=== PATIENT | male | born 1945 | race Caucasian/White ===

== ENCOUNTER 2017-02-08 13:23 | Inpatient (IN) | payer OTHER ==
[~2017-02-08] VITALS: Ht 193 cm; Wt 91.2 kg
--- NOTE | ~2017-02-08 | HC ---
[facility] [place] [address] CONSULTATION Name: ASH FLEMING Room #: 424-P [facility] IN M.R.#: [id number] Admission: 02/08/17 Attend Phys: Jennifer Benjamin Discharge: 02/10/17 Date of : 45 Report #: [id number] THIS REPORT FOR: //name// CC: Jennifer Benjamin Rikki Stewart DATE OF SERVICE: 02/09/2017 CHIEF COMPLAINT: Left groin pain. HISTORY OF PRESENT ILLNESS: The patient is a very pleasant 71-year-old male with history of left groin and left scrotal tenderness over the past several weeks. He was seen in the emergency department yesterday where he was initially thought to have an incarcerated left inguinal hernia. Proper workup, including a CT scan of the pelvis demonstrated that this was actually epididymis and cystitis along with bladder diverticula. The patient has history of urethral stricture and has undergone straight catheterization multiple times daily over the past several years. He has been treated primarily at [facility] and has been followed by urology as an outpatient. He has also undergone right inguinal hernia repair with mesh and then had a re-repair of that same right side. He has apparently not had prior hernia repair on the left side. The patient also complains of nausea and pain with Valsalva, especially upon passing a bowel movement. He does take hydrocodone 10 mg q.4 hours chronically for arthritis. This does help with the groin pain. He denies any yu dysuria or hematuria. He has had prior heart catheterization x 3 and does have a diagnosis of atrial fibrillation. PAST MEDICAL HISTORY: Atrial fibrillation, cardiac catheterization x 3, bladder stricture from previous severe cystitis, and self catheterization multiple times daily. PAST SURGICAL HISTORY: Positive for right inguinal hernia repair with mesh and then re-repair apparently at [facility] and cardiac catheterization x 3. HOME MEDICATIONS: Include Flexeril, Cymbalta, [place] 10/325 one tablet q.4 hours as needed for pain, fluticasone, Lopressor, Lyrica, Norvasc, sumatriptan, Topamax and Zestril. ALLERGIES: No known drug allergies. SOCIAL HISTORY: Negative for tobacco, ETOH or drug use. The patient is a retired [employer] , served in [place]. REVIEW OF SYSTEMS: CONSTITUTIONAL: Negative for fevers, chills or unwanted weight loss. OCULAR: No diplopia or visual change. HEENT: No dysphagia or odynophagia. No voice changes. PULMONARY: No productive [place] [address] CONS[place]ATION [place] ASH [place] [facility] [place]: 424-P [facility] [place] ..#: [id number] Admission: 02/08/17 Attend Phys: Jennifer Benjamin Discharge: 02/10/17 Date of : 45 Report #: [id number] of breath. CARDIOVASCULAR: No chest pain or palpitation. GASTROINTESTINAL: Positive for nausea. Negative for abdominal pain. Positive for left groin pain. GENITOURINARY: Positive for left testicular exquisite pain. Negative for dysuria or hematuria. Positive for history of hesitancy and need for straight caths approximately 6 times daily, which he does on his own. MUSCULOSKELETAL: Positive for chronic back pain, knee pain and hip pain with a diagnosis of arthritis, on chronic pain medication for this. CUTANEOUS: Negative for skin lesions or rashes. NEUROLOGIC: No new focal weakness or tingling. PHYSICAL EXAMINATION: GENERAL: The patient is afebrile and nauseated. He is uncomfortable. He is normotensive and nontoxic at appearance. He does give appropriate history and is fluent with normal mood and affect. HEENT: Head is atraumatic and normocephalic. Pupils are equally round and reactive to light. No icterus is appreciated. Mucosa are pink and moist. NECK: Supple without lymphadenopathy. No jugular venous distention. LUNGS: Clear to auscultation. HEART: Regular on this exam. No obvious murmur. EXTREMITIES: Warm and well perfused. ABDOMEN: Shows suprapubic and left lower quadrant mild tenderness to palpation. Scrotum shows exquisite left testicular tenderness to palpation. Upon Valsalva, no palpable obvious hernia on the left side. Right groin shows a well-healed surgical incision consistent with prior inguinal hernia repair. Right testicle is descended and unremarkable. NEUROLOGIC: Without focal weakness or deficit. SKIN: Warm and dry and well perfused. LABORATORY STUDIES: Reviewed from this admission. White count of 7.0, hemoglobin of 10.8 and platelets of 299. No left shift identified. Complete metabolic profile essentially unremarkable. Urinalysis showed 1+ leukocytes and 16-25 wbc's per high-power field. Lactate of 0.8. INR of 1.0. CT scan of the abdomen and pelvis with contrast was obtained in the emergency department. This shows diffuse bladder wall thickening and a left-sided bladder diverticulum consistent with chronic cystitis or bladder outlet obstruction. Prostate mildly enlarged. Colon and small bowel were unremarkable. No stranding. No recurrent right-sided hernia was identified. Radiologic read describes a small fat containing left inguinal hernia, but no inflammatory fat stranding. 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 There is definitely no bowel within any left inguinal canal. Ultrasound of the scrotum was obtained. This shows that these were normal size and echotexture. No intratesticular mass, blood flow symmetric, no torsion. Left epididymis was enlarged with increased vascularity. Moderate size left hydrocele. No varicocele. Urine culture, no growth up to this point. IMPRESSION: A 71-year-old male with history of prior urethral stricture from severe cystitis in the distant past. The patient undergoes daily self catheterization approximately 6 times daily, now with left epididymis, hydrocele and cystitis. 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 [address] [address] CONSULTATION Name: ASH [place]LEM[place] [facility] [place] #: 424-P [facility] [place] .R.#: [id number] Admission: 02/08/17 Attend Phys: Jennifer Benjamin Discharge: 02/10/17 Date of : 45 Report #: [id number] RECOMMENDATION: 1. No plan for surgical intervention regarding left cord lipoma. Suspect that this is not the etiology of his painful symptoms. Agree with plan for antibiotic therapy, which was initiated in the emergency department. 2. Appreciate urology evaluation and management. 3. We will be available for any further general surgical questions or concerns. Consultation is very much appreciated. <ELECTRONICALLY SIGNED> By: Amanuel Mejía MD 02/11/17 1038 1201 53 Amanuel Mejía MD /nt
--- NOTE | ~2017-02-08 | EKG ---
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
[2017-02-08 13:29] VITALS: BP 124/85
[2017-02-08 14:37] LABS: ABSOLUTE NEUTROPHILS 4.3 thou/uL (1.4-8.2); BASOPHILS 0.6 % (0.0-2.0); EOSINOPHILS 1.2 % (0.0-3.0); HEMATOCRIT 33.8 % (42.0-52.0); HEMOGLOBIN 10.8 gm/dL (14.0-18.0); LYMPHOCYTES 28.2 % (24.0-44.0); MCH 27.3 pg (26.0-34.0); MCHC 32.1 g/dL (28.0-37.0); MONOCYTES 8.4 % (1.0-8.0); PLATELET COUNT 299 thou/uL (150-400); POLYS 61.6 % (36.0-66.0); RBC 3.97 mil/uL (4.50-6.00); RDW 15.2 % (10.5-14.5)
[2017-02-08 14:39] LABS: MANUAL DIFF NO
[2017-02-08 14:47] LABS: ALBUMIN 2.9 g/dL (3.4-5.0); CALCIUM 8.7 mg/dL (8.5-10.1); CREATININE 0.7 mg/dL (0.7-1.3); POTASSIUM 4.7 mmol/L (3.5-5.1); TOTAL BILIRUBIN 0.3 mg/dL (<0.1-1.0); TOTAL PROTEIN 7.1 g/dL (6.4-8.2)
[2017-02-08 15:18] LABS: URINE BILIRUBIN NEGATIVE (Negative); URINE BLOOD NEGATIVE (Negative); URINE COLOR YELLOW; URINE GLUCOSE-RANDOM* NEGATIVE (Negative); URINE KETONES NEGATIVE (Negative); URINE NITRITE NEGATIVE (Negative); URINE PROTEIN (DIPSTICK) NEGATIVE (Negative)
[2017-02-08] MEDS ORDERED: FLEXERIL PO (15:24)
[2017-02-08] MEDS ORDERED: CYMBALTA60 MG PO (15:24)
[2017-02-08] MEDS ORDERED: FLUTICASONE PRO16 GM NS (15:24)
[2017-02-08] MEDS ORDERED: NORCO 10-325 T1 EACH PO (15:24)
[2017-02-08] MEDS ORDERED: SUMATRIPTAN SU100 MG PO (15:25)
[2017-02-08] MEDS ORDERED: LYRICA300 MG PO (15:25)
[2017-02-08] MEDS ORDERED: LOPRESSOR100 M1 PO (15:25)
[2017-02-08] MEDS ORDERED: NORVASC2.5 MG PO (15:25)
[2017-02-08] MEDS ORDERED: LISINOPRIL20 MG PO (15:25)
[2017-02-08] MEDS ORDERED: TOPAMAX50 MG PO (15:25)
[2017-02-08 15:36] LABS: BACTERIA None Seen /HPF (None Seen); CASTS None Seen /LPF (None Seen); CRYSTALS None Seen /LPF (None Seen); SQUAMOUS None Seen /LPF (0-3); URINE RBC None Seen /HPF (0-2)
[2017-02-08 15:44] LABS: APTT 31.4 Seconds (24.5-32.8); PROTIME 10.3 Seconds (9.3-11.4)
[2017-02-08 18:25] VITALS: BP 144/94
[2017-02-08 20:49] VITALS: BP 109/78
[2017-02-09 04:00] VITALS: BP 121/80
[2017-02-09 05:30] LABS: HEMATOCRIT 32.1 % (42.0-52.0); HEMOGLOBIN 10.3 gm/dL (14.0-18.0); MCH 27.1 pg (26.0-34.0); MCHC 32.1 g/dL (28.0-37.0); MCV 84.4 fL (80.0-100.0); RBC 3.8 mil/uL (4.50-6.00); WBC 7.1 thou/uL (4.0-11.0)
[2017-02-09 05:42] LABS: CALCIUM 8.3 mg/dL (8.5-10.1); CREATININE 0.7 mg/dL (0.7-1.3); MAGNESIUM 2.2 mg/dL (1.8-2.4)
[2017-02-09 05:45] LABS: POTASSIUM 3.5 mmol/L (3.5-5.1)
[2017-02-09 07:40] VITALS: BP 136/92
[2017-02-09 15:03] VITALS: BP 142/80
[2017-02-09 20:00] VITALS: BP 163/113
[2017-02-10 03:27] VITALS: BP 150/93
[2017-02-10 05:59] LABS: HEMATOCRIT 28.7 % (42.0-52.0); HEMOGLOBIN 9.2 gm/dL (14.0-18.0); MCH 27.2 pg (26.0-34.0); MCV 85.1 fL (80.0-100.0); RBC 3.37 mil/uL (4.50-6.00); RDW 15.1 % (10.5-14.5); WBC 7.3 thou/uL (4.0-11.0)
[2017-02-10 07:54] VITALS: BP 141/85
[2017-02-10] MEDS ORDERED: MIRALAX17 GM PO (10:10)
[2017-02-10] MEDS ORDERED: FLOMAX0.4 MG PO (10:10)
[2017-02-10] MEDS ORDERED: CEFUROXIME500 MG PO (10:12)
[2017-02-10 11:07] VITALS: BP 133/94
[2017-02-10 11:49] VITALS: BP 133/94
[2017-02-10 15:42] VITALS: BP 158/93
== END 2017-02-10 16:25 | disposition home or self-care (01) | DRG 728 ==
LOC: ER 13:23 → EROBS 16:17 → 4E 16:17
PROVIDERS: Hospitalist; Physician Assistant
DX: N45.1 Epididymitis (principal); N30.90 Cystitis, unspecified without hematuria; I48.91 Unspecified atrial fibrillation; K40.90 Unilateral inguinal hernia, without obstruction or gangrene, not specified as recurrent; N43.3 Hydrocele, unspecified; N32.89 Other specified disorders of bladder; N32.3 Diverticulum of bladder; M19.90 Unspecified osteoarthritis, unspecified site; J45.909 Unspecified asthma, uncomplicated; Z87.11 Personal history of peptic ulcer disease; Z90.49 Acquired absence of other specified parts of digestive tract
CPT/HCPCS: 10183